=== PATIENT | female | born 1990 | race African-American/Black ===

== ENCOUNTER 2017-04-25 09:39 | Emergency (ER) | payer MEDICAID ==
[~2017-04-25] VITALS: Ht 149.9 cm; Wt 74.8 kg
[2017-04-25 09:44] VITALS: BP 155/87
[2017-04-25] MEDS ORDERED: AMOXICILLIN500 MG ORAL (10:27)
[2017-04-25] MEDS ORDERED: BENADRYL25 MG ORAL (10:27)
[2017-04-25 10:36] VITALS: BP 97/53
--- NOTE | 2017-04-25 10:39 | Emergency Room Report ---
History of Present Illness General Chief Complaint: Skin Rash/Abscess Source: Patient Present Illness HPI Patient is a 26-year-old female who presented after increased generalized itching and skin rash. Patient gradual onset of symptoms over the past one day. The patient not been having any fever she denies any shortness of breath. The patient not been vomiting or having diarrhea. She denies any new food exposure. Patient states he been having a sore throat for several weeks. Allergies: Coded Allergies: No Known Allergies (Unverified , 04/25/17) Patient History Past Medical History: see triage record Last Menstrual Period: 04/20/17 Reviewed Nursing Documentation: PMH: Agreed, PSxH: Agreed Nursing Documentation-PMH Past Medical History: No Stated History Review of Systems All Other Systems: negative except mentioned in HPI Physical Exam Vital Signs Date Time Temp Pulse Resp B/P (MAP) Pulse Ox O2 Delivery O2 Flow Rate FiO2 04/25/17 09:44 97.9 73 18 155/87 99 Room Air General Appearance: well appearing, no apparent distress, alert, GCS 15, obese Head: normocephalic, atraumatic ENT: hearing grossly normal, normal voice, pharyngeal erythema Neck: full range of motion, supple Respiratory: no respiratory distress, speaking full sentences Gastrointestinal: normal inspection Musculoskeletal: normal inspection, digits/nails normal, no calf tenderness Neurologic: normal inspection, alert, oriented x3, responsive, normal gait Psychiatric: mood/affect normal Skin: other - generalized erythematous rash, sandpaper like Medical Decision Making Diagnostic Impression: Primary Impression: Strep throat/scarlet fever ER Course Patient presented for skin rash. Differential diagnosis included was not limited to Rae-Gregorio syndrome, urticaria, erythema multiforme, contact dermatitis. Patient's benign exam and does not appear to require any further imaging or laboratory testing at this time. The patient was given Benadryl.She is given prescription for oral antibiotics. The patient is advised to follow up with primary care doctor in 1-2 days. Patient is advised to return if any worsening condition or if any changes in status that are concerning. Last Vital Signs Date Time Temp Pulse Resp B/P (MAP) Pulse Ox O2 Delivery O2 Flow Rate FiO2 04/25/17 09:44 97.9 73 18 155/87 99 Room Air Status: improved Disposition: HOME, SELF-CARE Condition: Stable Scripts Diphenhydramine Hcl* (BENADRYL*) 25 Mg Capsule 25 MG ORAL Q6H Y for Itching, #30 CAP Prov: Alfonso Leal 04/25/17 Amoxicillin* (AMOXIL*) 500 Mg Capsule 500 MG ORAL THREE TIMES A DAY, #21 CAP Prov: Alfonso Leal 04/25/17 Patient Instructions: Alfonso Joyner Apr 25, 2017 10:39
== END 2017-04-25 10:37 | disposition home or self-care (01) ==
LOC: EMR 10:10
DX: J02.0 Streptococcal pharyngitis (principal); A38.9 Scarlet fever, uncomplicated
CPT/HCPCS: 81025; 99284

== ENCOUNTER 2017-12-31 12:31 | Emergency (ER) | payer MEDICAID ==
[~2017-12-31] VITALS: Ht 149.9 cm; Wt 90.7 kg
[~2017-12-31 12:31] MED LIST: AMOXICILLIN500 MG ORAL; BENADRYL25 MG ORAL
--- NOTE | 2017-12-31 12:53 | Emergency Room Report ---
History of Present Illness General Chief Complaint: General Complaint Source: Patient (Shaq Dominguez) Present Illness HPI 27-year-old female patient presents to ER complaining external hemorrhoids and vaginal discharge times a week. Reports history of hemorrhoids when she was , denies from since that time. Reports history of blood on toilet paper when wiping, denies blood in stool. Denies straining.. Denies diarrhea or constipation. Denies fever, chest, shortness breath. Also complains of vaginal discharge during this time. Denies dysuria, hematuria. Denies pruritus. Reports sexual activity with one partner, denies using condoms. Low suspicion for STI. Denies foul-smelling odor. Denies other acute symptoms. Denies back pain or belly pain. Reports trying preparation without relief of symptoms. (Shaq Dominguez) Allergies: Coded Allergies: No Known Allergies (Unverified , 04/25/17) Patient History Past Medical History: see triage record Last Menstrual Period: 12/11/2017 Now: No Reviewed Nursing Documentation: PMH: Agreed; PSxH: Agreed (Shaq Dominguez) Nursing Documentation-PMH Past Medical History: No Stated History (Shaq Dominguez) Review of Systems All Other Systems: negative except mentioned in HPI (Shaq Dominguez) Physical Exam Vital Signs Date Time Temp Pulse Resp B/P (MAP) Pulse Ox O2 Delivery O2 Flow Rate FiO2 12/31/17 12:40 98.7 70 16 106/63 99 Room Air 98.8 Sp02 EP Interpretation: reviewed, normal General Appearance: well appearing, no apparent distress, alert, GCS 15, non- toxic Head: normocephalic, atraumatic Eyes: bilateral eye normal inspection, bilateral eye PERRL ENT: hearing grossly normal, normal pharynx, no angioedema, normal voice, uvula midline, moist mucus membranes Neck: full range of motion Respiratory: lungs clear, normal breath sounds, no rhonchi, no respiratory distress, no accessory muscle use, no wheezing, speaking full sentences Cardiovascular #1: regular rate, rhythm, no edema Gastrointestinal: non tender, soft, no mass, non-distended, no guarding, no rebound Rectal: hemorrhoids - palpable, no erythema, TTP Genitourinary: no CVA tenderness, cervix normal, ext genitalia/vag normal, no vertebral tenderness Musculoskeletal: back normal, digits/nails normal, gait/station normal, normal range of motion, non-tender Neurologic: alert, oriented x3, responsive, motor strength/tone normal, sensory intact Psychiatric: mood/affect normal Skin: no rash Lymphatic: no adenopathy (Shaq Dominguez) Medical Decision Making PA Attestation Dr. Vides is my supervising Physician whom patient management has been discussed with. (Shaq Dominguez) Diagnostic Impression: Primary Impression: Bacterial vaginosis Additional Impression: Hemorrhoids Qualified Codes: K64.3 - Fourth degree hemorrhoids ER Course Pt. presents to the ED c/o hemorrhoids and vaginal discharge. Ddx considered but are not limited to constipation, anal tag, anal fissure, hemorrhoids, bacterial vaginosis, yeast infection, UTI. Vital signs: are WNL, pt. is afebrile No orders required at this time. No signs of anemia, no pallor, patient reports no light headedness. ER COURSE: external hemorrhoid noted, no erythema or bluish discoloration, no signs of thrombosed, will treat with outpatient suppository steroids. Will provide Colace to help with stool passage to prevent straining. Patient seen by dr. Vides, agrees with evaluation and treatment plan. return to ER for new or worsening of symptoms. No anal fissure, no skin tags. Will treat for hemorrhoids with Anusol, followup with primary care and discuss referral to GI and market risk specialist as needed. UA equivocal, patient asymptomatic, Do not believe does not require treatment with antibiotics at this time. Urine negative. clue cells noted on wet mount, no trichomonas, no yeast, white vaginal discharge noted on pelvic exam, will treat for early bacterial vaginosis. sexual partners required treatment. Follow-up with STI clinic for further testing and treatment if concern for STI. Denies concern at this time. avoid sexual activity for 2 weeks, wear condoms during sex. DISCHARGE: Rx provided for Anusol, 2 supp/day BID x 2 weeks. Rx provided for Colace, 200mg/day PO BID x7 days. Rx provided for Metronidazole. do not drink alcohol taking medication. At this time pt is stable for d/c to home. Patient is resting comfortably, in no acute distress, nontoxic appearing, talking without difficulty. Patient to take medications as instructed Will provide with patient care instructions and any necessary prescriptions. Care plan and follow-up instructions provided. Patient instructed to follow-up with primary care provider in 3 - 5 days. Patient questions asked and answered. Patient reports understanding and agreement to treatment plan. ER precautions given. Patient instructed to return to ER immediately for any new or worsening of symptoms including but not limited to increasing SOB, persistent fever. - Please note that this Emergency Department Report was dictated using [employer] transcriptionist technology software, occasionally this can lead to erroneous entry secondary to interpretation by the dictation equipment. Labs Test 12/31/17 13:20 Urine Color Yellow Urine Appearance Turbid Urine pH 7 (4.5-8.0) Urine Specific [place] 1.010 (1.005-1.035) Urine Protein 1+ (NEGATIVE) Urine Glucose (UA) Negative (NEGATIVE) Urine Ketones Negative (NEGATIVE) Urine Occult Blood 4+ (NEGATIVE) Urine Nitrite Negative (NEGATIVE) Urine Bilirubin Negative (NEGATIVE) Urine Urobilinogen 1 MG/DL (0.0-1.0) Urine Leukocyte Esterase 2+ (NEGATIVE) Urine RBC 30-40 /HPF (0 - 2) Urine WBC 5-10 /HPF (0 - 2) Urine Squamous Epithelial Cells Moderate /LPF (NONE/OCC) Urine Bacteria Few /HPF (NONE) Urine HCG, Qualitative Negative (NEGATIVE) (Shaq Dominguez P.AAlexis) ER Course I examined this patient and agree with assessment and treatment plan. (Celso Vides M.D.) Last Vital Signs Date Time Temp Pulse Resp B/P (MAP) Pulse Ox O2 Delivery O2 Flow Rate FiO2 12/31/17 12:40 98.7 70 16 106/63 99 Room Air 98.8 (Shaq Dominguez P.A.) Disposition: HOME, SELF-CARE Condition: Stable Scripts Metronidazole* (FLAGYL*) 500 Mg Tablet 500 MG ORAL EVERY 12 HOURS for 7 Days, #14 TAB Prov: Shaq Dominguez.AAlexis 12/31/17 Docusate Sodium* (COLACE*) 100 Mg Capsule 100 MG ORAL TWICE A DAY for 7 Days, #14 CAP Prov: Shaq Dominguez.AAlexis 12/31/17 Hydrocortisone Acetate* (ANUSOL-HC*) 25 Mg Supp.rect 1 SUPP RECTAL TWICE A DAY for 14 Days, #28 SUPP Prov: Shaq Dominguez 12/31/17 Patient Instructions: Bacterial Vaginosis, [id number], Hemorrhoids, Easy-to- Read Additional Instructions: Followup with primary care provider and followup with and./or OBGYN. Do not drink alcohol while taking Flagyl due to side effects. sexual partners need follow-up and treatment too. Follow-up with STI clinic for testing and treatment as needed. Follow-up with market risk specialist discuss further treatment for hemorrhoids. Drink plenty of fluids. Take medications as directed. Patient questions asked and answered. ER precautions given, patient instructed to return to ER immediately for any new or worsening of symptoms. Shaq Dominguez Dec 31, 2017 12:53 Celso Vides M.D. Jan 02, 2018 00:57
[2017-12-31 13:40] LABS: APPEARANCE,URINE TURBID; BILIRUBIN, URINE NEGATIVE (NEGATIVE); GLUCOSE, URINE (UA) NEGATIVE (NEGATIVE); KETONES,URINE NEGATIVE (NEGATIVE); LEUKOCYTE ESTERASE ,URINE 2+ (NEGATIVE); NITRITE,URINE NEGATIVE (NEGATIVE); PH,URINE 7 (4.5-8.0); PROTEIN,URINE 1+ (NEGATIVE); UROBILINOGEN,URINE 1 MG/DL (0.0-1.0)
[2017-12-31 13:45] LABS: COLOR,URINE YELLOW
[2017-12-31] MEDS ORDERED: METRONIDAZOLE500 MG ORAL (14:07)
[2017-12-31] MEDS ORDERED: COLACE100 MG ORAL (14:07)
[2017-12-31] MEDS ORDERED: ANUSOL-HC25 MG RECTAL (14:07)
[2017-12-31 14:18] VITALS: BP 106/63
== END 2017-12-31 14:21 | disposition home or self-care (01) ==
LOC: EMR 13:01
DX: N76.0 Acute vaginitis (principal); K64.4 Residual hemorrhoidal skin tags; B96.89 Other specified bacterial agents as the cause of diseases classified elsewhere
CPT/HCPCS: 81003; 81025; 87210; 99284